=== PATIENT | male | born 1955 | race Caucasian/White ===

== ENCOUNTER 2018-08-16 19:35 | Inpatient (IN) ==
--- NOTE | 2018-08-16 20:48 | XR ---
EXAM DATE: 08/16/2018 12:00 AM EDT AGE/SEX: 63 years / Male INDICATIONS: Right knee pain after fall. CLINICAL DATA: This is the patient's initial encounter. Patient reports that signs and symptoms have been present for 1 day and indicates a pain score of 10/10. MEDICAL/SURGICAL HISTORY: None. . Patella removed. COMPARISON: No prior exams available for comparison. FINDINGS: 4 views of the right knee show a comminuted fracture involving the distal metadiaphysis. There is pos terior displacement of the distal fracture fragment relative to the proximal fracture fragment with 4 5 degrees of angulation as well. Advanced osteoarthritis involving all 3 compartments of the knee dontrell nt. Medial subluxation of the femoral condyles relative to the tibial plateaus. Large joint effusion. CONCLUSION: Comminuted femoral metadiaphyseal fracture as detailed above. Electronically signed by: Carlyle Paulino MD 08/16/2018 8:46 PM EDT
[2018-08-16] MEDS ORDERED: Morphine Inj 4 MG/ML Vial IV.PUSH ONE (22:11)
--- NOTE | 2018-08-16 22:17 | ED ---
HPI General Chief Complaint: Fall Stated Complaint: Patient states he fell Time Seen by Provider: 08/16/18 22:04 Source: patient Mode of arrival: other Limitations: no limitations History of Present Illness HPI Narrative: 63-year-old male with a history of hypertension, hyperlipidemia presents to the emergency department for evaluation of right knee pain that started after a fall today. Patient says that he was standing on a desk, installing his TV when he slipped back and fell on his knee and right leg. Patient states that he was unable to walk immediately after the event. He says that [facility] was called who assisted him to his private vehicle for transport to the hospital today. He says currently his pain is located just proximal to his knee and is 8/10 and nonradiating. Denies numbness or tingling to extremities. Says he occasionally takes aspirin but did not take any today. Denies use of blood thinners. MD complaint: Reports fall Onset (ago): hour(s) Fall from: standing Fall witnessed: no Place fall occurred: home Loss of consciousness: none Prolonged down time: no Symptoms prior to fall: Reports none Context: Reports tripped/slipped Location of injury - extremities: Right: knee Severity scale (1-10): 8 Quality: Reports aching Associated symptoms (after fall): Reports denies Related Data Home Medications Medication Instructions Recorded Confirmed lisinopril 2.5 mg PO DAILY 08/16/18 08/16/18 metoprolol tartrate 25 mg PO DAILY 08/16/18 08/16/18 simvastatin 10 mg PO QPM 08/16/18 08/16/18 Allergies Allergy/AdvReac Type Severity Reaction Status Date / Time No Known Allergies Allergy Verified 08/16/18 19:44 Review of Systems ROS: all other systems reviewed are negative PMFSH History History Provided By: Patient Medical History Medical History High cholesterol (Acute) Hypertension (Acute) Surgical History Surgical History H/O right knee surgery (Acute) Social History Social History Substance History: No History of Abuse Smoking Status: Former smoker How Often Do You Have a Drink Containing Alcohol: 2 to 4 times a month Recent Travel in [facility] within the Last 8 Weeks: No Recent Out of Country Travel within the Last 8 Weeks: No Exam Narrative Exam Narrative: GENERAL: Well-developed, well-nourished in no apparent distress SKIN: Focused skin assessment warm/dry. HEAD: Atraumatic. Normocephalic. EYES: Pupils equal and round. No scleral icterus. No injection or drainage. ENT: No nasal bleeding or discharge. Mucous membranes pink and moist. NECK: Trachea midline. No JVD. CARDIOVASCULAR: Regular rate and rhythm. No murmur appreciated. RESPIRATORY: No accessory muscle use. Clear to auscultation. Breath sounds equal bilaterally. GASTROINTESTINAL: Abdomen soft, non-tender, nondistended. Hepatic and splenic margins not palpable. MUSCULOSKELETAL: No obvious deformities. No clubbing. No cyanosis. No edema. RLE: leg externally rotated as position of comfort. Tenderness to palpation just proximal to the knee sensation intact to light touch bilateral lower extremities Bilateral dorsalis pedis pulses present and bounding. NEUROLOGICAL: Awake and alert. No obvious cranial nerve deficits. Motor grossly within normal limits. Normal speech. PSYCHIATRIC: Appropriate mood and affect; insight and judgment normal. Procedures Orthopedic Fracture Reduction Fracture #1: Time Out Performed: Yes Side: right Fracture Reduction Location: femur Analgesia: procedural sedation Technique: direct manipulation and traction/counter-traction Post Reduction X-rays Demonstrate: acceptable reduction Post-Reduction Neuro Exam: intact Post-Reduction Vascular Exam: intact Splint Applied: Yes Patient Tolerated Procedure: well and no complications Additional Comments: This was a reduction of a distal femur dislocation. The patient was placed in an ice cuff and a knee immobilizer postreduction. Postreduction x-ray has been ordered. Procedural Sedation Indications: fracture/dislocation reduction Presedation Evaluation: Patient ASA of 2, Mallampati 2, has received morphine already. Both he and his verbalized consent after discussion wrist benefits comp occasions alternatives including apnea and hypotension. Patient has no allergies to medications. Last ate about 6 PM. Patient sedated by me Dr. Gandhi reduced by Dr. Wade. ASA Class: ASA 2 Moderate Systemic Disease Preparation: front desk monitor applied, pulse oximeter, capnometry used, supplemental O2 applied and suction/airway equipment at bedside IV Propofol Dose (mgs): 120 Patient Tolerated Procedure: well Complications: none Additional Comments: Total sedation time probably 10 minutes, see sedation paperwork for details Course Initial Documented Vital Signs Temperature 98.5 F 08/16/18 19:44 Pulse Rate 91 H 08/16/18 19:44 Respiratory Rate 18 10/23/18 19:44 Blood Pressure 164/88 H 08/16/18 19:44 Pulse Oximetry 95 08/16/18 19:44 Last Documented Vital Signs Temperature 98.5 F 08/16/18 19:44 Pulse Rate 96 H 08/16/18 19:47 Respiratory Rate 17 08/16/18 23:36 Blood Pressure 144/72 H 08/16/18 19:47 Pulse Oximetry 99 08/16/18 23:21 Medical Decision Making RAE Attestation RAE supervised visit: Yes Attestation: I, Dr. Wade, have reviewed the advance practice practitioner's documentation and am in agreement, met with the patient face to face, made the diagnosis, and the medical decision making was done by me. The patient was initially evaluated by Pilar, the PA. Please see their complete history and physical. *My assessment and Findings: The patient presents with a reported history of falling off of the desk when he was standing on it prior to arrival to install a television set. The patient reports that he stepped backwards and landed on his right leg. The patient reports having severe right knee pain. He reports a prior history of trauma to that right knee with surgery previously. He denies hitting his head or losing consciousness. He denies having any neck pain , numbness or tingling to his extremities, or weakness of his extremities. He denies having any other extremity pain. He denies having any chest pain, chest pressure, or shortness of breath. He denies having any abdominal pain. During the course of the patient's emergency department visit, the patient's history, examination, and differential diagnosis were reviewed with the patient. The patient was placed on a front desk monitor with oximetry and frequent blood pressure monitoring. The patient had IV access obtained and blood work sent for analysis. The patient was initially provided morphine for pain, Zofran for nausea, propofol was provided for procedural sedation for placement into a splint. The patient's diagnostic studies were reviewed and remarkable for The patient's diagnostic studies are remarkable for a white count of 12, hemoglobin 14, platelets 185 with 84.8 neutrophils, PT PTT within normal limits, chemistry is unremarkable, troponin I less than 0.02, chest x-ray is no acute cardiopulmonary disease, knee x-ray on the right reveals a comminuted femoral metadiaphyseal fracture. Esperanza, the physician prosthetics assistant did discuss his fracture further with the orthopedic physician on-call, Dr. Hinds. The patient's case including history, pertinent physical examination findings, and laboratory studies were discussed with Dr. Long. It was agreed that the patient would be admitted to the hospitalist service. The patient's results were discussed with the patient, including the plan of care. I explained that further testing and/ or monitoring is indicated based on the patient's history, examination, and/ or laboratory findings. Therefore, I recommended admission for additional evaluation. The patient expressed understanding and was agreeable with this plan. The patient was admitted to the hospital in stable condition and sent to a bed under the care of the [facility] service. MDM Narrative Medical decision making narrative: 63-year-old male presents to the emergency department for evaluation of right knee pain after fall that occurred today. He says that he slipped and fell, landing on his right knee. He denies injuries elsewhere. Denies head trauma. Denies neck or back pain. Denies numbness or tingling the extremity. Physical exam findings consistent with right knee fracture vs femur fracture vs dislocation. Pulses bounding, sensory intact bilateral lower extremities. Morphine for pain. I spoke with Dr. Hinds, pig conveyor operator ortho who agreed with knee immobilizer placement and NPO after midnight. Labs are stable. Please see my attending's note for information regarding sedation and procedure to place patient in knee immobilizer. Medical Screen Exam Complete: Yes Emergency Medical Condition: Yes Differential Diagnosis Differential Diagnosis: Right knee fracture, right knee Lab Data Result diagrams: 08/16/18 22:18 08/16/18 22:18 Lab Results 08/16/18 08/16/18 08/16/18 Range/Units 22:18 22:18 22:18 WBC 12.0 H (4.0-11.0) th/mm3 RBC 4.25 L (4.50-5.90) mil/mm3 Hgb 14.0 (13.0-17.0) gm/dL Hct 40.6 (39.0-51.0) % MCV 95.3 (80.0-100.0) fL MCH 32.9 (27.0-34.0) pg MCHC 34.5 (32.0-36.0) % RDW 13.6 (11.6-17.2) % Plt Count 185 (150-450) th/mm3 MPV 8.6 (7.0-11.0) fL Neut % (Auto) 84.8 H (16.0-70.0) % Lymph % (Auto) 9.1 (9.0-44.0) % [place] % (Auto) 5.2 (0.0-8.0) % Eos % (Auto) 0.3 (0.0-4.0) % Baso % (Auto) 0.6 (0.0-2.0) % Neut # (Auto) 10.2 H (1.8-7.7) th/mm3 Lymph # (Auto) 1.1 (1.0-4.8) th/mm3 [place] # (Auto) 0.6 (0.0-0.9) th/mm3 Eos # (Auto) 0.0 (0.0-0.4) th/mm3 Baso # (Auto) 0.1 (0.0-0.2) th/mm3 WBC Differential . Differential Comment Auto diff final PT 10.8 (9.8-11.6) sec INR 1.1 Ratio APTT 25.7 (24.3-30.1) sec Sodium 133 L (136-145) meq/L Potassium 4.6 (3.5-5.1) meq/L Chloride 100 (98-107) meq/L Carbon Dioxide 23.0 (21.0-32.0) meq/L Anion Gap 10 (5-15) meq/L BUN 13 (7-18) mg/dL Creatinine 1.07 (0.60-1.30) mg/dL Estimated GFR 70 L (>89) mL/min Random Glucose 134 H (74-106) mg/dL Calcium 8.2 L (8.5-10.1) mg/dL Total Bilirubin 0.3 (0.2-1.0) mg/dL AST 28 (15-37) U/L ALT 45 (12-78) U/L Alkaline Phosphatase 110 (45-117) U/L Troponin I Less than 0.02 L (0.02-0.05) ng/mL Total Protein 7.9 (6.4-8.2) g/dL Albumin 3.7 (3.4-5.0) g/dL Imaging Data Radiologist's impression: Knee X-Ray 08/16/18 00:00 CONCLUSION: Comminuted femoral metadiaphyseal fracture as detailed above. Chest X-Ray 08/16/18 22:05 CONCLUSION: Mild atelectasis or consolidation at the inferior lateral left base. Discharge Plan Discharge Disposition Patient Disposition: 30 Still Patient Discharge Condition Condition: Stable Discharge Details Diagnosis: Femoral distal fracture Physicians Team ED Provider: Josee Wade ED Midlevel Provider: Esperanza Padilla Primary Care Provider: Primary Care Michelle Medeiros Attending Provider: Svetlana Long Status ED Status: Admitted Patient
[2018-08-16 22:31] LABS: Baso # (Auto) 0.1 th/mm3 (0.0-0.2); Baso % (Auto) 0.6 % (0.0-2.0); Eos % (Auto) 0.3 % (0.0-4.0); Hematocrit 40.6 % (39.0-51.0); Lymph # (Auto) 1.1 th/mm3 (1.0-4.8); Lymph % (Auto) 9.1 % (9.0-44.0); Mean Corpuscular HGB Conc 34.5 % (32.0-36.0); Mean Corpuscular Hemoglobin 32.9 pg (27.0-34.0); Mean Corpuscular Volume 95.3 fL (80.0-100.0); Mean Platelet Volume 8.6 fL (7.0-11.0); Mono # (Auto) 0.6 th/mm3 (0.0-0.9); Mono % (Auto) 5.2 % (0.0-8.0); Neut # (Auto) 10.2 th/mm3 (1.8-7.7); Neut % (Auto) 84.8 % (16.0-70.0); Platelet Count 185 th/mm3 (150-450); Red Blood Count 4.25 mil/mm3 (4.50-5.90); Red Cell Distribution Width 13.6 % (11.6-17.2)
[2018-08-16 22:44] LABS: Activated Partial Thrombo Time 25.7 sec (24.3-30.1); INR 1.1 Ratio; Prothrombin Time 10.8 sec (9.8-11.6)
[2018-08-16 22:52] LABS: Alanine Aminotransferase 45 U/L (12-78); Albumin 3.7 g/dL (3.4-5.0); Anion Gap 10 meq/L (5-15); Aspartate Aminotransferase 28 U/L (15-37); Blood Urea Nitrogen 13 mg/dL (7-18); Calcium 8.2 mg/dL (8.5-10.1); Chloride 100 meq/L (98-107); Glomerular Filtration Rate 70 mL/min (>89); Glucose,Random 134 mg/dL (74-106); Potassium 4.6 meq/L (3.5-5.1); Sodium 133 meq/L (136-145)
[2018-08-16 22:57] LABS: Alkaline Phosphatase 110 U/L (45-117); Total Protein 7.9 g/dL (6.4-8.2)
--- NOTE | 2018-08-16 23:01 | XR ---
EXAM DATE: 08/16/2018 10:05 PM EDT AGE/SEX: 63 years / Male INDICATIONS: Evaluate pneumonia, pneumothorax, or communicable disease. Pre op for femur surgery. CLINICAL DATA: This is the patient's initial encounter. Patient reports that signs and symptoms have been present for 1 day and indicates a pain score of 0/10. MEDICAL/SURGICAL HISTORY: Hypertension. . COMPARISON: No prior exams available for comparison. FINDINGS: The heart size is normal. There is mild increased density at the lateral left base. Right lung is rosita ar. No effusion is seen. CONCLUSION: Mild atelectasis or consolidation at the inferior lateral left base. Electronically signed by: Jose Luis Gómez MD 08/16/2018 11:00 PM EDT
[2018-08-17] MEDS ORDERED: Morphine Inj 4 MG/ML Vial IV.PUSH ONE (00:23)
[2018-08-17] MEDS ORDERED: Morphine Inj 4 MG/ML Vial IV.PUSH PRN (01:30)
[2018-08-17] MEDS ORDERED: Acetaminophen 325 MG Tablet PO PRN (01:32)
[2018-08-17] MEDS ORDERED: Bisacodyl 10 MG Supp RECTAL PRN (01:32)
--- NOTE | 2018-08-17 01:35 | XR ---
EXAM DATE: 08/17/2018 12:47 AM EDT AGE/SEX: 63 years / Male INDICATIONS: Post reduction distal femur. CLINICAL DATA: This is the patient's subsequent encounter. Patient reports that signs and symptoms h ave been present for 1 day and indicates a pain score of 10/10. MEDICAL/SURGICAL HISTORY: None. None. COMPARISON: [facility] [place], KNEE COMPLETE RIGHT 4V, 08/16/2018. . FINDINGS: Again noted is the distal femur fracture. The distal fragment appears posteriorly displaced by approx imately 2 cm in relationship to the femoral shaft. The fracture is normally aligned in the AP project ion. The knee joint is normally aligned. The patella is not visualized. There is hypertrophic change with joint space narrowing at the medial and lateral compartments. CONCLUSION: Distal femoral shaft fracture with posterior displacement of the distal fragment. Electronically signed by: Jose Luis Gómez MD 08/17/2018 1:34 AM EDT
--- NOTE | 2018-08-17 01:39 | P.HP ---
History of Present Illness Service: [facility] Primary Care Physician: No Primary Care Physician History of Present Illness: 63-year-old male with a past medical history significant for hypertension and hyperlipidemia presents the emergency department for evaluation of right leg pain following a fall. The patient was hanging a TV when he was standing on a desk and took a step backwards, falling off the desk. He denies any head trauma or loss of consciousness. No chest pain or shortness of breath. No abdominal pain. No nausea/vomiting/diarrhea. No lateralizing signs/symptoms. No fever/chills. Inpatient Certification: I certify that the inpatient services were ordered in accordance with Medicare regulations governing the order. This includes certification that hospital inpatient services are reasonable and necessary and in the case of services not specified as inpatient-only under 42 CFR 419.22(n), that they are appropriately provided as inpatient services in accordance to with the 2-midnight benchmark under 43 CFR 412.3(e) Estimated Total Length of Stay (Days): 2 Plans for Post Hospital Care: Not yet determined Review of Systems All other systems reviewed negative except as stated [facility] - History History Provided By: Patient - Medical History Medical History: Medical History (Last Reviewed 08/17/18 @ 01:35 by Svetlana Long MD) High cholesterol Hypertension - Surgical History Surgical History: Surgical History (Last Updated 08/17/18 @ 01:36 by Svetlana Long MD) History of ankle surgery History of elbow surgery - Family History Family History: Family History (Last Updated 08/17/18 @ 01:36 by Svetlana Long MD) Other Hypertension - Tobacco History Smoking Status: Former smoker - Alcohol History How Often Do You Have a Drink Containing Alcohol: 2 to 4 times a month - Substance Use History Substance History: No History of Abuse - Travel History Recent Travel in the [place] Within the Last 8 Weeks: No Recent Travel Out of the Country Within the Last 8 Weeks: No - Immunization History Tetanus Immunization: <5 Years Medications and Allergies Allergies Allergy/AdvReac Type Severity Reaction Status Date / Time No Known Allergies Allergy Verified 08/16/18 19:44 Home Medications Medication Instructions Recorded Confirmed Type lisinopril 2.5 mg PO DAILY 08/16/18 08/16/18 History metoprolol tartrate 25 mg PO DAILY 08/16/18 08/16/18 History simvastatin 10 mg PO QPM 08/16/18 08/16/18 History Exam Vital signs: Vital Signs 08/16/18 19:44 08/16/18 19:47 08/16/18 23:21 Temperature 98.5 F Pulse Rate 91 H 96 H Respiratory Rate 18 17 18 Blood Pressure 164/88 H 144/72 H Pulse Oximetry 95 96 99 08/16/18 23:36 08/17/18 00:30 Temperature Pulse Rate 77 Respiratory Rate 17 17 Blood Pressure 137/72 Pulse Oximetry 97 Intake & Output 08/16/18 08/16/18 08/17/18 06:59 18:59 06:59 Weight 104.326 kg Narrative: Gen.: No acute distress Head: Normocephalic. Atraumatic. EENT: Pupils equal round and reactive to light. Nose without drainage. Airway intact. Throat without injection. Cardiovascular: Regular rate and rhythm. No murmurs, rubs or gallops. Respiratory: Lungs clear to auscultation bilaterally. No wheezes or rhonchi. Abdomen: Soft, nontender, nondistended. No peritoneal signs. Musculoskeletal: No edema. Bilateral lower extremities neurovascularly intact. Skin: No obvious rashes or erythema. Neuro: Sensory and motor grossly intact. Cranial nerves II through XII grossly intact. Results - Labs CBC & Chem 7: 08/16/18 22:18 08/16/18 22:18 Labs: Laboratory Results - last 24 hr 08/16/18 08/16/18 08/16/18 22:18 22:18 22:18 WBC 12.0 H RBC 4.25 L Hgb 14.0 Hct 40.6 MCV 95.3 MCH 32.9 MCHC 34.5 RDW 13.6 Plt Count 185 MPV 8.6 Neut % (Auto) 84.8 H Lymph % (Auto) 9.1 [place] % (Auto) 5.2 Eos % (Auto) 0.3 Baso % (Auto) 0.6 Neut # (Auto) 10.2 H Lymph # (Auto) 1.1 [place] # (Auto) 0.6 Eos # (Auto) 0.0 Baso # (Auto) 0.1 WBC Differential . Differential Comment Auto diff final PT 10.8 INR 1.1 APTT 25.7 Sodium 133 L Potassium 4.6 Chloride 100 Carbon Dioxide 23.0 Anion Gap 10 BUN 13 Creatinine 1.07 Estimated GFR 70 L Random Glucose 134 H Calcium 8.2 L Total Bilirubin 0.3 AST 28 ALT 45 Alkaline Phosphatase 110 Troponin I Less than 0.02 L Total Protein 7.9 Albumin 3.7 - Imaging Impressions Knee X-Ray 08/16/18 00:00 CONCLUSION: Comminuted femoral metadiaphyseal fracture as detailed above. Chest X-Ray 08/16/18 22:05 CONCLUSION: Mild atelectasis or consolidation at the inferior lateral left base. Caprini VTE Risk Assessment Caprini VTE Risk Assessment: Moderate/High Risk (score >= 2) Caprini Risk Assessment Model: Point Value = 1 Point Value = 2 Point Value = 3 Point Value = 5 Age 41-60 Minor surgery BMI > 25 kg/m2 Swollen legs Varicose veins or History of unexplained or recurrent spontaneous Oral contraceptives or hormone replacement Sepsis (< 1 month) Serious lung disease, including pneumonia (< 1 month) Abnormal pulmonary function Acute myocardial infarction Congestive heart failure (< 1 month) History of inflammatory bowel disease Medical patient at bed rest Age 61-74 Arthroscopic surgery Major open surgery (> 45 min) Laparoscopic surgery (> 45 min) Malignancy Confined to bed (> 72 hours) Immobilizing plaster cast Central venous access Age >= 75 History of VTE Family history of VTE Factor V Leiden Prothrombin [id number] Lupus anticoagulant Anticardiolipin antibodies Elevated serum homocysteine Heparin-induced thrombocytopenia Other congenital or acquired thrombophilia Stroke (< 1 month) Elective arthroplasty Hip, pelvis, or leg fracture Acute spinal cord injury (< 1 month) Prophylaxis Regimen: Total Risk Factor Score Risk Level Prophylaxis Regimen 0-1 Low Early ambulation 2 Moderate Order ONE of the following: *Sequential Compression Device (SCD) *Heparin 5000 units SQ BID 3-4 Higher Order ONE of the following medications: *Heparin 5000 units SQ TID *Enoxaparin/Lovenox 40 mg SQ daily (WT < 150 kg, CrCl > 30 mL/min) *Enoxaparin/Lovenox 30 mg SQ daily (WT < 150 kg, CrCl > 10-29 mL/min) *Enoxaparin/Lovenox 30 mg SQ BID (WT < 150 kg, CrCl > 30 mL/min) AND/OR *Sequential Compression Device (SCD) 5 or more Highest Order ONE of the following medications: *Heparin 5000 units SQ TID (Preferred with Epidurals) *Enoxaparin/Lovenox 40 mg SQ daily (WT < 150 kg, CrCl > 30 mL/min) *Enoxaparin/Lovenox 30 mg SQ daily (WT < 150 kg, CrCl > 10-29 mL/min) *Enoxaparin/Lovenox 30 mg SQ BID (WT < 150 kg, CrCl > 30 mL/min) AND *Sequential Compression Device (SCD) Assessment and Plan - Plan Assessment/plan: 1. Femur fracture X-ray significant for comminuted femoral metadiaphyseal fracture of the right femur Orthopedic surgery consulted, appreciate recommendations Morphine PT 2. Hypertension/hyperlipidemia Continue home medications FEN N.p.o. Electrolytes: Monitor and replete as needed NS at 100 cc/hour
[2018-08-17] MEDS ORDERED: Sodium Chloride 0.9% 2 ML Flush PRN IV.FLUSH (02:00)
[2018-08-17] MEDS: HYDROmorphone PF Inj 2 MG/ML Vial IV.PUSH PRN ×3 (02:11→21:10)
[2018-08-17] MEDS: Sod Chloride 0.9% Inj 1,000 ML IV.CONT SCH ×3 (02:13→23:25)
--- NOTE | 2018-08-17 07:22 | P.CONOP ---
[facility] Orthopedics Consult Note - [facility] Consult date: 08/17/18 Chief complaint: Right Distal Femur Fracture Narrative: Leobardo is a 63-year-old male. He presented the emergency room after having a fall. He was attempting to hang a TV on a wall. He was standing on a desk. He stepped backwards and fell off the back of the desk. He landed on his right leg. He had immediate right leg pain and deformity. He was unable to stand or ambulate. Pain was severe and intense. Pain is improved with rest and is worse with movement. He denies dizziness, syncope, or loss of consciousness. He has a history of hypertension and high cholesterol. Review of Systems Patient denies fevers, chills, weight loss, headache, visual changes, hearing loss, chest pain, palpitations, shortness of breath, nausea, vomiting, no urinary changes, diarrhea, bowel changes, neck pain, back pain, skin rashes, weakness of extremities, easy bleeding, enlarged lymph nodes, numbness of extremities, anxiety, or depression. He complains of right thigh and knee pain. Patient's social history, past medical history, and family history were reviewed on chart and with patient. He denies any familial medical problems per [facility] - History History Provided By: Patient - Medical History Medical History: Medical History (Last Reviewed 08/17/18 @ 07:20 by Mika Deng MD) High cholesterol Hypertension - Surgical History Surgical History: Surgical History (Last Reviewed 08/17/18 @ 07:20 by Mika Deng MD) History of ankle surgery History of elbow surgery - Family History Family History: Family History (Last Reviewed 08/17/18 @ 07:20 by Mika Deng MD) Other Hypertension - Social History I have reviewed the patient's Social History: Yes - Tobacco History Smoking Status: Former smoker - Alcohol History How Often Do You Have a Drink Containing Alcohol: 2 to 4 times a month - Substance Use History Substance History: No History of Abuse - Travel History Recent Travel in the [place] Within the Last 8 Weeks: No Recent Travel Out of the Country Within the Last 8 Weeks: No - Immunization History Tetanus Immunization: <5 Years Medications and Allergies Active Medications: Active Medications Acetaminophen (Tylenol) 650 mg PO Q4H PRN PRN Reason: Temp > 100.4 Al Hydroxide/Mg Hydroxide (Milk Of Magnesia Liq) 30 ml PO Q12H PRN PRN Reason: Mild Constipation Bisacodyl (Dulcolax Supp) 10 mg RECTAL DAILY PRN PRN Reason: SEVERE CONSITIPATION Hydromorphone HCl (Dilaudid Pf Inj) 2 mg IV.PUSH Q3H PRN PRN Reason: pain 6-10 Last Admin: 08/17/18 05:22 Dose: 2 mg Sodium Chloride (Ns Inj) 1,000 mls @ 100 mls/hr IV.CONT .Q10H LUIS Last Admin: 08/17/18 02:13 Dose: 100 mls/hr Lactulose (Lactulose Liq) 30 ml PO DAILY PRN PRN Reason: SEVERE CONSITIPATION Lisinopril (Prinivil) 2.5 mg PO DAILY LUIS Metoprolol Tartrate (Lopressor) 25 mg PO DAILY [facility] Miscellaneous (Pill Splitter) 1 each OTHER UNSCH PRN PRN Reason: PILL SPIT Ondansetron HCl (Zofran Inj) 4 mg IV.PUSH Q6H PRN PRN Reason: NAUSEA OR VOMITING Pravastatin Sodium (Pravachol) 20 mg PO HS LUIS Senna/Docusate Sodium (Esther-Colace) 1 tab PO BID [facility] Sennosides (Senokot) 17.2 mg PO Q12H PRN PRN Reason: Moderate Constipation Sodium Chloride (Ns Flush) 2 ml IV.FLUSH BID LUIS Sodium Chloride (Ns Flush) 2 ml IV.FLUSH PRN PRN PRN Reason: FLUSH AFTER USING IV ACCESS Allergies Allergy/AdvReac Type Severity Reaction Status Date / Time No Known Allergies Allergy Verified 08/16/18 19:44 Home Medications Medication Instructions Recorded Confirmed Type lisinopril 2.5 mg PO DAILY 08/16/18 08/16/18 History metoprolol tartrate 25 mg PO DAILY 08/16/18 08/16/18 History simvastatin 10 mg PO QPM 08/16/18 08/16/18 History Exam Vital signs: Vital Signs 08/16/18 19:44 08/16/18 19:47 08/16/18 23:21 Temperature 98.5 F Pulse Rate 91 H 96 H Respiratory Rate 18 17 18 Blood Pressure 164/88 H 144/72 H Pulse Oximetry 95 96 99 08/16/18 23:36 08/17/18 00:30 08/17/18 01:45 Temperature Pulse Rate 77 Respiratory Rate 17 17 19 Blood Pressure 137/72 Pulse Oximetry 97 08/17/18 02:12 08/17/18 04:00 08/17/18 04:30 Temperature Pulse Rate 89 80 80 Respiratory Rate 18 17 16 Blood Pressure 140/69 148/80 H 148/80 H Pulse Oximetry 96 97 98 08/17/18 06:32 Temperature Pulse Rate 85 Respiratory Rate 16 Blood Pressure 168/86 H Pulse Oximetry 96 Intake & Output 08/16/18 08/17/18 08/17/18 18:59 06:59 18:59 Weight 104.326 kg Narrative: Leobardo is a 63-year-old male. General: Awake and alert. No acute distress. Appears well-developed well- nourished Head: Normocephalic, atraumatic pupils are equal Neck: Soft, nontender, trachea midline Abdomen: Soft, nondistended Examination of right arm reveals no pain or deformity with shoulder, elbow, or wrist motion. Skin is intact. Radial pulse is palpable. Normal capillary refill in fingers. Sensation is intact in radial, ulnar, and median nerve distributions. [employer] strength is +5. No lymphadenopathy noted. Examination of left arm reveals no pain or deformity with shoulder, elbow, or wrist motion. Skin is intact. Radial pulse is palpable. Normal capillary refill in fingers. Sensation is intact in radial, ulnar, and median nerve distributions. [employer] strength is +5. No lymphadenopathy noted. Examination of left lower extremity reveals no pain or deformity with hip, knee , or ankle motion. Skin is intact. Sensation is intact in left foot. Dorsalis pedis pulse is palpable. Normal capillary refill and feet. Thigh and calf compartments are soft. No lymphadenopathy noted. +5 strength of ankle dorsiflexion and plantarflexion. Examination of right lower extremity reveals tenderness over his distal femur. He has pain with any knee motion. Calf and thigh compartments are soft. He has mild swelling present. He has no tenderness over his tibia or ankle. Skin is intact. Sensation is intact in right foot. Dorsalis pedis pulse is palpable. Normal capillary refill and feet. Thigh and calf compartments are soft. No lymphadenopathy noted. +5 strength of ankle dorsiflexion and plantarflexion. Results - Labs Result Diagrams: 08/16/18 22:18 08/16/18 22:18 Labs: Laboratory Results - last 24 hr 08/16/18 08/16/18 08/16/18 22:18 22:18 22:18 WBC 12.0 H RBC 4.25 L Hgb 14.0 Hct 40.6 MCV 95.3 MCH 32.9 MCHC 34.5 RDW 13.6 Plt Count 185 MPV 8.6 Neut % (Auto) 84.8 H Lymph % (Auto) 9.1 [place] % (Auto) 5.2 Eos % (Auto) 0.3 Baso % (Auto) 0.6 Neut # (Auto) 10.2 H Lymph # (Auto) 1.1 [place] # (Auto) 0.6 Eos # (Auto) 0.0 Baso # (Auto) 0.1 WBC Differential . Differential Comment Auto diff final PT 10.8 INR 1.1 APTT 25.7 Sodium 133 L Potassium 4.6 Chloride 100 Carbon Dioxide 23.0 Anion Gap 10 BUN 13 Creatinine 1.07 Estimated GFR 70 L Random Glucose 134 H Calcium 8.2 L Total Bilirubin 0.3 AST 28 ALT 45 Alkaline Phosphatase 110 Troponin I Less than 0.02 L Total Protein 7.9 Albumin 3.7 - Diagnostic results Imaging: Impressions Knee X-Ray 08/16/18 00:00 CONCLUSION: Comminuted femoral metadiaphyseal fracture as detailed above. Chest X-Ray 08/16/18 22:05 CONCLUSION: Mild atelectasis or consolidation at the inferior lateral left base. Knee X-Ray 08/17/18 00:47 CONCLUSION: Distal femoral shaft fracture with posterior displacement of the distal fragment. Knee x-ray: report reviewed, image reviewed Assessment and Plan - Assessment and Plan Leobardo is a 63-year-old male who had a fall resulting in right distal femur supracondylar fracture. Treatment options were discussed. At this point I would recommend open reduction internal fixation of right distal femur. Risk and benefits of surgery were discussed in depth with patient. All questions were answered. The risk and benefits of surgery were discussed in depth with patient. The risk of surgery include bleeding, infection, injuries to arteries, nerves, or blood vessels, infection, wound complications, nonunion, malunion, painful hardware, and need for further surgery. I also discussed medical complications including blood clots, pneumonia, stroke, heart attack, and . Informed consent was obtained and all questions were answered. N.p.o.--plan on surgery this morning Calcium and vitamin D supplementation Physical therapy consult--nonweightbearing right leg Follow-up with Dr. Deng in 2 weeks Harika, Elier Magana A mid-level provider in my office (nurse practitioner or physician assistant womens volleyball coach) may see this patient on follow-up visits and continue to implement the objectives of this plan including: Starting or adjusting medications, injections , cast application, orthotics, brace application, physical therapy, radiological studies (including x-ray, MRI, CT, ultrasound, bone scan), vascular studies, neurologic studies, specialist consultation, and proceeding with surgical management, as appropriate.
[2018-08-17] MEDS ORDERED: Succinylcholine Inj 100 MG/5 ML Syringe IV.PUSH ONE (07:50)
[2018-08-17] MEDS ORDERED: Neostigmine Inj 5 MG/5 ML Syringe IV.PUSH ONE (07:50)
[2018-08-17] MEDS ORDERED: Phenylephrine/NS 1000 MCG/10ML Syringe IV.PUSH ONE (07:50)
[2018-08-17] MEDS ORDERED: Glycopyrrolate Inj 1 MG/5 ML Syringe IV.PUSH ONE (07:50)
--- NOTE | 2018-08-17 08:14 | ECG ---
Date Performed: 08/17/2018 Time Performed: 07:37:10 PTAGE: 63 years EKG: Sinus rhythm BORDERLINE LEFT AXIS DEVIATION BORDERLINE ECG NO PREVIOUS TRACING DOCTOR: Ilia Deluna Interpretating Date/Time 08/17/2018 08:12:42
[2018-08-17] MEDS ORDERED: Chlorhexidine Gluconate 2% 1 Pack (2 Cloths) TOPICAL ONE (08:15)
[2018-08-17] MEDS ORDERED: Metoprolol Tartrate 25 MG Tablet PO ONE (08:15)
[2018-08-17] MEDS ORDERED: Sodium Chlor 0.9% Inj 500 ML IV.CONT ONE (08:15)
[2018-08-17] MEDS ORDERED: Post-op Orders (for Pharmacy) OTHER STA (09:29)
--- NOTE | 2018-08-17 09:37 | P.OP ---
- Preoperative Diagnosis (1) Closed supracondylar fracture of right femur with routine healing Date of procedure: 08/17/18 Procedure: Open reduction internal fixation right distal femur supracondylar fracture Anesthesia: GETA Surgeon: Mika Deng MD Operation and Findings: Implants used: ITS Plan of activity: Nonweightbearing, passive range of motion of knee Details of procedure: Informed consent was obtained, operative site was marked. Patient was brought to the OR, placed on OR table, and given IV sedation with GETA. IV antibiotics were administered and timeout procedure was performed. The right leg was prepped with alcohol, followed with Hibiclens, draped in usual sterile fashion. The procedure began with a 4-inch incision over the lateral aspect of the distal femur. Subcutaneous tissue was dissected with Bovie. Iliotibial band was split in line with fibers. At this point the fracture was visualized. Traction was applied. Fracture was manipulated. Patient was noted to have moderate to severe right knee osteoarthritis. The fracture reduced into excellent alignment. A fracture tenaculum was used to aid in reduction. Steinmann pins were used to hold provisional fixation. At this point attention was turned to plate placement. A lateral condylar plate was selected. The plate was placed underneath the vastus lateralis. Steinmann pins were used to hold the plate to bone. Multiplanar fluoroscopy confirmed appropriate placement of plate. Multiple 4.5 cortical screws were now placed in percutaneous fashion through the plate. The plate was compressed to bone. Multiple locking screws were now placed in the distal segment of the distal femur. Additional locking screws were placed distally. All screws were predrilled and premeasured for appropriate length. Final fluoroscopy revealed excellent alignment of fracture with well-placed hardware. Wound was thoroughly irrigated. Fascia was closed with #1 Vicryl. Subcutaneous tissue was closed with 3-0 Vicryl. Skin was closed with tri. Sterile dressings were applied. The patient was placed into a knee immobilizer and transferred to recovery in stable condition. Needle and sponge counts were correct.
[2018-08-17] MEDS ORDERED: fentaNYL Citrate Inj 100 MCG/2 ML Ampul ONE (09:58)
[2018-08-17] MEDS ORDERED: *Meperidine Inj 25 MG/ML Vial PERIprocedural Use ONLY ONE (10:14)
[2018-08-17] MEDS ORDERED: *morphine SULFATE 4 MG/ML PERIprocedure ONLY ONE (10:49)
[2018-08-17] MEDS: Senna/Docusate Sodium 8.6/50 MG Tablet PO SCH ×2 (10:55→21:13)
[2018-08-17] MEDS: Lisinopril 5 MG Tablet PO SCH (10:55)
[2018-08-17] MEDS: Sodium Chloride 0.9% 2 ML Flush BID IV.FLUSH SCH ×2 (10:56→21:01)
[2018-08-17] MEDS: Metoprolol Tartrate 25 MG Tablet PO SCH (10:57)
--- NOTE | 2018-08-17 11:15 | XR ---
EXAM DATE: 08/17/2018 12:00 AM EDT AGE/SEX: 63 years / Male INDICATIONS: Right femur open reduction internal fixation. CLINICAL DATA: This is the patient's initial encounter. Patient reports that signs and symptoms have been present for 1 day and indicates a pain score of Nonresponsive. MEDICAL/SURGICAL HISTORY: Non-responsive. Non-responsive. COMPARISON: No prior exams available for comparison. FINDINGS: Status post internal fixation of the distal femur. There is good alignment of the fracture fragments involving the distal femur. The hardware is grossly intact. There is good alignment at the knee joint . CONCLUSION: Good position and alignment on this postoperative study. Electronically signed by: Fortino Childs MD 08/17/2018 11:14 AM EDT
[2018-08-17] MEDS ORDERED: Influenza (Quadrivalent) Vaccine 0.5 ML Syringe IM ONE (13:00)
[2018-08-17] MEDS: Calcium/Vitamin D 250/125 MG Tablet PO SCH ×2 (13:13→17:22)
[2018-08-17] MEDS ORDERED: ceFAZolin 2 GM Premix Inj 2 GM/50 ML PIGGYBACK IV.SIG SCH (16:00)
[2018-08-17] MEDS: ceFAZolin Inj 2,000 MG in Sodium Chlor 0.9% Inj 100 ML IV.SIG SCH (16:11)
[2018-08-17] MEDS: Benzocaine/Menthol 15 MG/3.6 MG SF Lozenge BUCCAL PRN (16:11)
[2018-08-17] MEDS: Vancomycin Inj 1,000 MG in Sodium Chlor 0.9% Inj 250 ML IV.SIG SCH (19:14)
[2018-08-18] MEDS: ceFAZolin Inj 2,000 MG in Sodium Chlor 0.9% Inj 100 ML IV.SIG SCH ×3 (00:08→15:53)
[2018-08-18] MEDS: HYDROmorphone PF Inj 2 MG/ML Vial IV.PUSH PRN ×4 (02:53→23:14)
--- NOTE | 2018-08-18 06:30 | P.PNOP ---
Subjective Interval history: POD 1 s/p ORIF right distal femur doing well. reports pain but controlled. out of bed with therapy Physical Exam Vital signs: Vital Signs 08/17/18 06:32 08/17/18 09:53 08/17/18 10:00 Temperature 97.1 F L Pulse Rate 85 80 66 Respiratory Rate 16 20 19 Blood Pressure 168/86 H 169/75 H 162/76 H Pulse Oximetry 96 97 95 08/17/18 10:15 08/17/18 10:30 08/17/18 11:00 Temperature Pulse Rate 62 67 60 Respiratory Rate 15 14 12 Blood Pressure 156/77 H 142/65 H 145/67 H Pulse Oximetry 97 96 96 08/17/18 11:17 08/17/18 12:00 08/17/18 13:21 Temperature 97 F L 97.7 F Pulse Rate 58 L 72 Respiratory Rate 13 16 18 Blood Pressure 140/68 153/74 H Pulse Oximetry 96 96 08/17/18 13:51 08/17/18 16:00 08/17/18 16:12 Temperature 98.6 F Pulse Rate 91 H Respiratory Rate 18 16 18 Blood Pressure 123/67 Pulse Oximetry 97 08/17/18 16:42 08/17/18 19:14 08/17/18 19:44 Temperature Pulse Rate Respiratory Rate 18 18 18 Blood Pressure Pulse Oximetry 08/17/18 20:00 08/17/18 21:40 08/17/18 21:43 Temperature 98.6 F Pulse Rate 90 Respiratory Rate 18 18 18 Blood Pressure 125/65 Pulse Oximetry 95 08/18/18 00:00 08/18/18 00:43 08/18/18 03:22 Temperature 97.6 F Pulse Rate 78 Respiratory Rate 18 18 18 Blood Pressure 120/66 Pulse Oximetry 95 08/18/18 04:00 Temperature 98.1 F Pulse Rate 82 Respiratory Rate 18 Blood Pressure 127/66 Pulse Oximetry 94 L Intake & Output 08/17/18 08/17/18 08/18/18 06:59 18:59 06:59 Intake Total 1350 / 1350 3130 / 3130 Output Total 750 / 750 1700 / 1700 Balance 600 / 600 1430 / 1430 Weight 104.326 kg 104.32 kg 104.32 kg Intake: IV 120 / 120 2370 / 2370 LR 1000 mL Inj 1,000 ML @ 80 1000 / 1000 mls/hr IV.CONT .[id number] [facility]IS Rx# :[id number] NS Inj 1,000 ML @ 100 mls/hr IV 1000 / 1000 .CONT .Q10H LUIS Rx#:[id number] Vancomycin Inj 1,000 MG In NS 250 / 250 Inj 250 ML @ 200 mls/hr IV.SIG Q12H [facility]IS Rx#:[id number] Ancef Inj 2,000 MG In NS Inj 120 / 120 120 / 120 100 ML @ 100 mls/hr IV.SIG Q8H LUIS Rx#:[id number] Oral 480 / 480 760 / 760 Anesthesia Amount 750 / 750 Output: Urine 550 / 550 1700 / 1700 Estimated Blood Loss 200 / 200 Other: Date of Last Bowel Movement 08/16/18 08/16/18 # Bowel Movements 0 Weight On Admission 104.32 kg Narrative: RLE: dressings clean and dry. intact. NVI. +CKS Results - Labs CBC & Chem 7: 08/16/18 22:18 08/16/18 22:18 - Imaging Impressions Femur X-Ray 08/17/18 00:00 CONCLUSION: Good position and alignment on this postoperative study. Assessment and Plan - Assessment and Plan 1) Right Distal Femur Fx s/p ORIF - POD 1 -NWB -daily dressing changes POD 2 -PROM of knee 0-90deg -CKS except for motion -no quad sets or leg lifts -CM for rehab placement -DVT prophylaxis -f/u with Mena or PA in 2 weeks [facility] Prescription Drug Monitoring Database has been queried and verified prior to prescribing the controlled substance. Acute pain exception. This patient has normal, predicted, physiological, and time limited response to an adverse mechanical stimulus associated with surgery, trauma, or acute illness as described in my notes. There is a lack of alternative treatment options other than to include the prescribed narcotic treatment for this condition.
[2018-08-18 07:08] LABS: Baso % (Auto) 0.2 % (0.0-2.0); Hematocrit 31.8 % (39.0-51.0); Lymph # (Auto) 1.5 th/mm3 (1.0-4.8); Lymph % (Auto) 12.9 % (9.0-44.0); Mean Corpuscular HGB Conc 34.5 % (32.0-36.0); Mean Corpuscular Hemoglobin 32.8 pg (27.0-34.0); Mean Corpuscular Volume 95.1 fL (80.0-100.0); Mean Platelet Volume 8.9 fL (7.0-11.0); Mono # (Auto) 1.2 th/mm3 (0.0-0.9); Mono % (Auto) 10.2 % (0.0-8.0); Neut # (Auto) 9.1 th/mm3 (1.8-7.7); Neut % (Auto) 76.7 % (16.0-70.0); Platelet Count 147 th/mm3 (150-450); Red Blood Count 3.34 mil/mm3 (4.50-5.90); Red Cell Distribution Width 13.6 % (11.6-17.2); White Blood Count 11.8 th/mm3 (4.0-11.0)
[2018-08-18 07:21] LABS: Anion Gap 8 meq/L (5-15); Blood Urea Nitrogen 10 mg/dL (7-18); Carbon Dioxide 25.8 meq/L (21.0-32.0); Chloride 104 meq/L (98-107); Glomerular Filtration Rate Greater Than 89 mL/min (>89); Glucose,Random 125 mg/dL (74-106); Potassium 4.5 meq/L (3.5-5.1); Sodium 138 meq/L (136-145)
[2018-08-18] MEDS: Vancomycin Inj 1,000 MG in Sodium Chlor 0.9% Inj 250 ML IV.SIG SCH (08:10)
[2018-08-18] MEDS: Metoprolol Tartrate 25 MG Tablet PO SCH (08:11)
[2018-08-18] MEDS: Lisinopril 5 MG Tablet PO SCH (08:12)
[2018-08-18] MEDS: Enoxaparin Inj 30 MG/0.3 ML Syringe SQ SCH ×2 (08:13→20:13)
[2018-08-18] MEDS: Senna/Docusate Sodium 8.6/50 MG Tablet PO SCH ×2 (08:13→20:13)
[2018-08-18] MEDS: Calcium/Vitamin D 250/125 MG Tablet PO SCH ×4 (08:14→18:21)
[2018-08-18] MEDS ORDERED: Menthol 5.8 MG Lozenge BUCCAL ONE (08:39)
--- NOTE | 2018-08-18 09:47 | P.PN ---
Subjective Interval history: Follow-up for right distal femur fracture status post ORIF. Patient is currently sitting in his chair. No acute concerns. No fever or chills. Physical Exam Vital signs: Vital Signs 08/17/18 09:53 08/17/18 10:00 08/17/18 10:15 Temperature 97.1 F L Pulse Rate 80 66 62 Respiratory Rate 20 19 15 Blood Pressure 169/75 H 162/76 H 156/77 H Pulse Oximetry 97 95 97 08/17/18 10:30 08/17/18 11:00 08/17/18 11:17 Temperature 97 F L Pulse Rate 67 60 58 L Respiratory Rate 14 12 13 Blood Pressure 142/65 H 145/67 H 140/68 Pulse Oximetry 96 96 96 08/17/18 12:00 08/17/18 13:21 08/17/18 13:51 Temperature 97.7 F Pulse Rate 72 Respiratory Rate 16 18 18 Blood Pressure 153/74 H Pulse Oximetry 96 08/17/18 16:00 08/17/18 16:12 08/17/18 16:42 Temperature 98.6 F Pulse Rate 91 H Respiratory Rate 16 18 18 Blood Pressure 123/67 Pulse Oximetry 97 08/17/18 19:14 08/17/18 19:44 08/17/18 20:00 Temperature 98.6 F Pulse Rate 90 Respiratory Rate 18 18 18 Blood Pressure 125/65 Pulse Oximetry 95 08/17/18 21:40 08/17/18 21:43 08/18/18 00:00 Temperature 97.6 F Pulse Rate 78 Respiratory Rate 18 18 18 Blood Pressure 120/66 Pulse Oximetry 95 08/18/18 00:43 08/18/18 03:22 08/18/18 04:00 Temperature 98.1 F Pulse Rate 82 Respiratory Rate 18 18 18 Blood Pressure 127/66 Pulse Oximetry 94 L 08/18/18 06:55 08/18/18 08:00 Temperature 98.1 F Pulse Rate 103 H Respiratory Rate 18 18 Blood Pressure 129/63 Pulse Oximetry 95 Intake & Output 08/17/18 08/18/18 08/18/18 18:59 06:59 18:59 Intake Total 1350 / 1350 3130 / 3130 Output Total 750 / 750 1700 / 1700 Balance 600 / 600 1430 / 1430 Weight 104.32 kg 104.32 kg Intake: IV 120 / 120 2370 / 2370 LR 1000 mL Inj 1,000 ML @ 80 1000 / 1000 mls/hr IV.CONT .[id number] LUIS Rx# :[id number] NS Inj 1,000 ML @ 100 mls/hr IV 1000 / 1000 .CONT .Q10H LUIS Rx#:[id number] Vancomycin Inj 1,000 MG In NS 250 / 250 Inj 250 ML @ 200 mls/hr IV.SIG Q12H [facility]IS Rx#:[id number] Ancef Inj 2,000 MG In NS Inj 120 / 120 120 / 120 100 ML @ 100 mls/hr IV.SIG Q8H [facility]IS Rx#:[id number] Oral 480 / 480 760 / 760 Anesthesia Amount 750 / 750 Output: Urine 550 / 550 1700 / 1700 Estimated Blood Loss 200 / 200 Other: Date of Last Bowel Movement 08/16/18 08/16/18 # Bowel Movements 0 Weight On Admission 104.32 kg Narrative: GENERAL: Alert, oriented x3, NAD. SKIN: Warm and dry. HEAD: Normocephalic. EYES: No scleral icterus. No injection or drainage. NECK: Supple, trachea midline. No JVD or lymphadenopathy. CARDIOVASCULAR: Regular rate and rhythm without murmurs, gallops, or rubs. RESPIRATORY: Breath sounds equal bilaterally. No accessory muscle use. GASTROINTESTINAL: Abdomen soft, non-tender, nondistended. MUSCULOSKELETAL: No cyanosis, or edema. Status post ORIF right distal femur. BACK: Nontender without obvious deformity. No CVA tenderness. Results - Labs CBC & Chem 7: 08/18/18 06:35 08/18/18 06:35 Laboratory Results - last 24 hr 08/18/18 08/18/18 06:35 06:35 WBC 11.8 H RBC 3.34 L Hgb 11.0 L D Hct 31.8 L MCV 95.1 MCH 32.8 MCHC 34.5 RDW 13.6 Plt Count 147 L MPV 8.9 Neut % (Auto) 76.7 H Lymph % (Auto) 12.9 [place] % (Auto) 10.2 H Eos % (Auto) 0.0 Baso % (Auto) 0.2 Neut # (Auto) 9.1 H Lymph # (Auto) 1.5 [place] # (Auto) 1.2 H Eos # (Auto) 0.0 Baso # (Auto) 0.0 WBC Differential . Differential Comment Auto diff final Sodium 138 Potassium 4.5 Chloride 104 Carbon Dioxide 25.8 Anion Gap 8 BUN 10 Creatinine 0.86 Estimated GFR Greater than 89 Random Glucose 125 H Calcium 8.0 L - Imaging Impressions Femur X-Ray 08/17/18 00:00 CONCLUSION: Good position and alignment on this postoperative study. - Procedures Open reduction internal fixation right distal femur supracondylar fracture 08/17. Assessment and Plan - Plan Mr. Saavedra is a 63-year-old male with a past medical history significant for hypertension and hyperlipidemia presented the emergency department for evaluation of right leg pain following a fall. He was found to have right distal femur fracture. Orthopedic surgery was consulted. Patient underwent ORIF on 08/17/2018. Acute fall Acute right distal femur fracture -Appreciate orthopedic surgery input. -Status post ORIF right distal femur 08/17/2018. -Continue Lovenox 30 mg every 12 hours. -Currently on acetaminophen, Sullivan, hydromorphone as needed for pain management. -Continue Os-Lopez, vitamin D. History of tachycardia Hypertension Hyperlipidemia -Continue lisinopril 2.5 mg p.o. daily, metoprolol tartrate 25 mg p.o. daily , statin Full code. Lovenox.
[2018-08-18] MEDS: Benzocaine/Menthol 15 MG/3.6 MG SF Lozenge BUCCAL PRN (10:00)
[2018-08-18] MEDS: Sodium Chloride 0.9% 2 ML Flush BID IV.FLUSH SCH ×2 (12:26→20:14)
[2018-08-19] MEDS: ceFAZolin Inj 2,000 MG in Sodium Chlor 0.9% Inj 100 ML IV.SIG SCH ×2 (00:25→08:33)
--- NOTE | 2018-08-19 06:36 | P.PNOP ---
Subjective Interval history: POD 2 s/p ORIF right distal femur doing well. reports pain but controlled. out of bed to chair with therapy. Physical Exam Vital signs: Vital Signs 08/18/18 06:55 08/18/18 08:00 08/18/18 12:00 Temperature 98.1 F 98.8 F Pulse Rate 103 H 87 Respiratory Rate 18 18 18 Blood Pressure 129/63 113/59 L Pulse Oximetry 95 96 08/18/18 12:25 08/18/18 16:00 08/18/18 17:03 Temperature 98.6 F Pulse Rate 102 H Respiratory Rate 16 18 18 Blood Pressure 99/54 L Pulse Oximetry 94 L 08/18/18 20:00 08/18/18 20:58 08/19/18 00:00 Temperature 99.1 F 99.4 F Pulse Rate 80 81 Respiratory Rate 17 18 17 Blood Pressure 131/70 125/61 Pulse Oximetry 96 94 L 08/19/18 05:00 Temperature Pulse Rate Respiratory Rate 18 Blood Pressure Pulse Oximetry Intake & Output 08/18/18 08/18/18 08/19/18 06:59 18:59 06:59 Intake Total 3130 / 3130 1790 / 1790 120 / 120 Output Total 1700 / 1700 1500 / 1500 700 / 700 Balance 1430 / 1430 290 / 290 -580 / -580 Weight 104.32 kg 104.1 kg Intake: IV 2370 / 2370 490 / 490 120 / 120 LR 1000 mL Inj 1,000 ML @ 80 1000 / 1000 mls/hr IV.CONT .[id number] [facility] Rx# :[id number] NS Inj 1,000 ML @ 100 mls/hr IV 1000 / 1000 .CONT .Q10H [facility]IS Rx#:[id number] Vancomycin Inj 1,000 MG In NS 250 / 250 250 / 250 Inj 250 ML @ 200 mls/hr IV.SIG Q12H [facility] Rx#:[id number] Ancef Inj 2,000 MG In NS Inj 120 / 120 240 / 240 120 / 120 100 ML @ 100 mls/hr IV.SIG Q8H [facility] Rx#:[id number] Oral 760 / 760 1300 / 1300 Output: Urine 1700 / 1700 1500 / 1500 700 / 700 Other: Date of Last Bowel Movement 08/16/18 08/16/18 08/16/18 Narrative: RLE: dressings clean and dry. intact. NVI. +CKS Results - Labs CBC & Chem 7: 08/18/18 06:35 08/18/18 06:35 Laboratory Results - last 24 hr 08/18/18 08/18/18 06:35 06:35 WBC 11.8 H RBC 3.34 L Hgb 11.0 L D Hct 31.8 L MCV 95.1 MCH 32.8 MCHC 34.5 RDW 13.6 Plt Count 147 L MPV 8.9 Neut % (Auto) 76.7 H Lymph % (Auto) 12.9 [place] % (Auto) 10.2 H Eos % (Auto) 0.0 Baso % (Auto) 0.2 Neut # (Auto) 9.1 H Lymph # (Auto) 1.5 [place] # (Auto) 1.2 H Eos # (Auto) 0.0 Baso # (Auto) 0.0 WBC Differential . Differential Comment Auto diff final Sodium 138 Potassium 4.5 Chloride 104 Carbon Dioxide 25.8 Anion Gap 8 BUN 10 Creatinine 0.86 Estimated GFR Greater than 89 Random Glucose 125 H Calcium 8.0 L - Procedures Open reduction internal fixation right distal femur supracondylar fracture 08/17. Assessment and Plan - Assessment and Plan 1) Right Distal Femur Fx s/p ORIF - POD 2 -NWB -daily dressing changes POD 2 -PROM of knee 0-90deg -CKS except for motion -no quad sets or leg lifts -CM for rehab placement -- ortho clear once arrangements made -DVT prophylaxis -f/u with Mena or PA in 2 weeks [facility] Prescription Drug Monitoring Database has been queried and verified prior to prescribing the controlled substance. Acute pain exception. This patient has normal, predicted, physiological, and time limited response to an adverse mechanical stimulus associated with surgery, trauma, or acute illness as described in my notes. There is a lack of alternative treatment options other than to include the prescribed narcotic treatment for this condition.
[2018-08-19] MEDS: Sod Chloride 0.9% Inj 1,000 ML IV.CONT SCH (07:02)
[2018-08-19] MEDS: Lisinopril 5 MG Tablet PO SCH (08:31)
[2018-08-19] MEDS: Enoxaparin Inj 30 MG/0.3 ML Syringe SQ SCH (08:33)
[2018-08-19] MEDS: Senna/Docusate Sodium 8.6/50 MG Tablet PO SCH (08:33)
[2018-08-19] MEDS: Calcium/Vitamin D 250/125 MG Tablet PO SCH ×4 (08:33→17:26)
[2018-08-19] MEDS: Metoprolol Tartrate 25 MG Tablet PO SCH (08:33)
[2018-08-19] MEDS: Sodium Chloride 0.9% 2 ML Flush BID IV.FLUSH SCH (08:37)
--- NOTE | 2018-08-19 13:35 | P.DCO ---
- Physical Therapy Order: Evaluate and treat, Improve ambulation, Strength and gait training - Home Health Nursing Order: Medical education, Signs/symptoms of disease process, Medication education-adverse effect, Wound care and dressing changes, Nursing assessment with vital signs - Case Management Consult No - Certification I have seen patient Leobardo Saavedra on 08/19/18. My clinical findings support the need for the requested home health care services because: Limited mobility due to disease progression, Deconditioned with increased weakness, Limited ability to care for self, High risk of falls, Infection with risk of complications I certify that my clinical findings support that this patient is homebound because: Post-op weakness, Unsteady gait/balance, Unsafe to leave home unassisted, Unable to use public transportation
--- NOTE | 2018-08-19 15:45 | P.DS ---
Date of admission: 08/16/18 23:34 Primary care physician: No Primary Care Physician Brief History from admission: 63-year-old male with a past medical history significant for hypertension and hyperlipidemia presents the emergency department for evaluation of right leg pain following a fall. The patient was hanging a TV when he was standing on a desk and took a step backwards, falling off the desk. He denies any head trauma or loss of consciousness. No chest pain or shortness of breath. No abdominal pain. No nausea/vomiting/diarrhea. No lateralizing signs/symptoms. No fever/chills. DS: Medications - Discharge Medications Prescriptions: hydrocodone-acetaminophen [[place]] 1 tab PO Q4H #40 tab rivaroxaban [Xarelto] 10 mg PO DAILY #14 tab DS: Summary Hospital Course: Mr. Saavedra is a 63-year-old male with a past medical history significant for hypertension and hyperlipidemia presented the emergency department for evaluation of right leg pain following a fall. He was found to have right distal femur fracture. Orthopedic surgery was consulted. Patient underwent ORIF on 08/17/2018. Acute fall Acute right distal femur fracture -Appreciate orthopedic surgery input. -Status post ORIF right distal femur 08/17/2018. -Continue Lovenox 30 mg every 12 hours. -Currently on acetaminophen, [place], hydromorphone as needed for pain management. -Continue Os-Lopez, vitamin D. History of tachycardia Hypertension Hyperlipidemia -Continue lisinopril 2.5 mg p.o. daily, metoprolol tartrate 25 mg p.o. daily , statin Orthopedic surgery cleared for discharge. Patient wanted to go to SNF. However his benefit requires that he pays 95/day. Patient is not willing to pay for SNF. Moreover, after discussing with physical therapy, it seems like patient can actually go home with home health. Will discharge patient home with home health. Orthopedic surgery wrote prescription for pain medication as well as Xarelto. - Time Spent with Patient Total time spent providing and/or coordinating discharge services: Less than 30 minutes - Quality: VTE Deep Vein Thrombosis/Pulmonary Embolism Present on Admission: No Exam Vital signs: Vital Signs 08/18/18 16:00 08/18/18 17:03 08/18/18 20:00 Temperature 98.6 F 99.1 F Pulse Rate 102 H 80 Respiratory Rate 18 18 17 Blood Pressure 99/54 L 131/70 Pulse Oximetry 94 L 96 08/18/18 20:58 08/19/18 00:00 08/19/18 05:00 Temperature 99.4 F Pulse Rate 81 Respiratory Rate 18 17 18 Blood Pressure 125/61 Pulse Oximetry 94 L 08/19/18 07:14 08/19/18 08:00 08/19/18 08:34 Temperature 98.9 F Pulse Rate 85 Respiratory Rate 16 17 16 Blood Pressure 146/71 H Pulse Oximetry 93 L 08/19/18 11:37 Temperature 98.9 F Pulse Rate 103 H Respiratory Rate 17 Blood Pressure 128/62 Pulse Oximetry 96 Intake & Output 08/18/18 08/19/18 08/19/18 18:59 06:59 18:59 Intake Total 1790 / 1790 120 / 120 120 / 120 Output Total 1500 / 1500 700 / 700 Balance 290 / 290 -580 / -580 120 / 120 Weight 104.1 kg Intake: IV 490 / 490 120 / 120 120 / 120 Vancomycin Inj 1,000 MG In NS 250 / 250 Inj 250 ML @ 200 mls/hr IV.SIG Q12H [facility]IS Rx#:[id number] Ancef Inj 2,000 MG In NS Inj 240 / 240 120 / 120 120 / 120 100 ML @ 100 mls/hr IV.SIG Q8H [facility]IS Rx#:[id number] Oral 1300 / 1300 Output: Urine 1500 / 1500 700 / 700 Other: Date of Last Bowel Movement 08/16/18 08/16/18 08/19/18 Narrative: GENERAL: Alert, oriented x3, NAD. SKIN: Warm and dry. HEAD: Normocephalic. EYES: No scleral icterus. No injection or drainage. NECK: Supple, trachea midline. No JVD or lymphadenopathy. CARDIOVASCULAR: Regular rate and rhythm without murmurs, gallops, or rubs. RESPIRATORY: Breath sounds equal bilaterally. No accessory muscle use. GASTROINTESTINAL: Abdomen soft, non-tender, nondistended. MUSCULOSKELETAL: No cyanosis, or edema. Status post ORIF right distal femur. BACK: Nontender without obvious deformity. No CVA tenderness. Results Procedures completed during hospitalization: Open reduction internal fixation right distal femur supracondylar fracture 08/17. - Impressions ITS Impressions Chest X-Ray 08/16/18 22:05 CONCLUSION: Mild atelectasis or consolidation at the inferior lateral left base. Femur X-Ray 08/17/18 00:00 CONCLUSION: Good position and alignment on this postoperative study. Knee X-Ray 08/17/18 00:47 CONCLUSION: Distal femoral shaft fracture with posterior displacement of the distal fragment. Discharge Plan - Discharge Disposition Patient Disposition: W/Home Health Service - Discharge Condition Condition: Stable - Discharge Order Discharge Orders: Discharge Order (Routine); Ordered 08/19/18 Ordered By: Devyn Govea Orthopedic Clear for Discharge (Routine); Ordered 08/19/18 Ordered By: Tera Akhtar - Discharge Details Anticipated Discharge Date: 08/19/18 - Physicians Team Primary Care Provider: Primary Care Waldemar,Michelle Attending Provider: Devyn Govea Other Providers: Medardo Hinds MD ; Mika Deng MD ; [facility], [facility] ; [facility] [employer]
[2018-08-19 16:50] VITALS: BP 138/70; PULSE 83; RESP 18; TEMP 98.3; O2SAT 98
== END 2018-08-19 18:05 | disposition home health service (06) ==
LOC: NEPC 19:35 → NEDA 23:34 → NEDH 08-17 03:32 → N06 08-17 11:39
PROVIDERS: ADMIT Hospitalist; ATTEND Hospitalist